=== PATIENT | male | born 1965 | race Caucasian/White ===

== ENCOUNTER → 2020-04-17 | Outpatient (CLI) | payer OTHER ==
--- NOTE | 2020-04-17 13:34 | RAD ---
2 views the right knee without comparison for work-related injury, right knee pain. FINDINGS: There is suggestion of a suprapatellar joint effusion. No definite fracture or acute osseous abnormality is seen. Mild degenerative changes are present. IMPRESSION: 1. No fracture or acute osseous abnormality. 2. Suprapatellar joint effusion. If there is concern for internal derangement, further evaluation with MRI should be considered. Electronically signed by: Kartik Mcclain MD (04/17/2020 1:31 PM) [id number]
== END | disposition home or self-care (01) ==
LOC: RAD 11:19
PROVIDERS: ATTEND Anesthesiology Pain Medicine
DX: M25.461 Effusion, right knee (principal)
CPT/HCPCS: 73560